=== PATIENT | female | born 1995 | race Hispanic/Latino ===

== ENCOUNTER 2021-11-25 13:45 | Emergency (ER) | payer BC ==
[2021-11-25] MEDS ORDERED: NA CHLORIDE 0.9% 1,000 ML ONE (14:05)
[2021-11-25] MEDS ORDERED: MECLIZINE HCL 12.5 MG TAB ONE (14:05)
[2021-11-25] MEDS ORDERED: ONDANSETRON 4 MG/2 ML VIAL ONE (14:06)
[2021-11-25 14:15] LABS: Urine Blood Trace-lysed (Negative); Urine Glucose Negative (Negative); Urine Protein Negative (Negative); Urine pH 6.5 (5.0-7.0)
--- NOTE | 2021-11-25 14:25 | RAD REPORT ---
EXAM DESCRIPTION: CT - Head Brain Wo Cont - 11/25/2021 2:14 pm CLINICAL HISTORY: Dizziness, non-specific COMPARISON: No comparisons TECHNIQUE: Axial 5 mm thick images of the head were obtained without IV contrast. All CT scans are performed using dose optimization technique as appropriate and may include automated exposure control or mA/KV adjustment according to patient size. FINDINGS: No intracranial hemorrhage, mass, edema or shift of mid-line structures. No acute infarcti on changes seen. No abnormal extra-axial fluid collections. Ventricles are normal. Physiologic calcif ications are present. Mastoid air cells and visualized portions of the paranasal sinuses are clear. No acute bony findings. IMPRESSION: Negative non-contrast CT head examination.
[2021-11-25 14:39] LABS: Absolute Lymphocytes (CBC) 1.7 K/uL (0.7-4.9); Hematocrit 37.4 % (36.0-45.0); Lymphocytes % 25.8 % (15.3-44.8); MCV 85.6 fL (80-100); MPV 7.4 fL (7.6-11.3); RBC Red Blood Cell Count 4.36 M/uL (3.86-4.86)
[2021-11-25 15:00] LABS: ALT/SGPT 19 U/L (12-78); AST/SGOT 13 U/L (15-37); Albumin 4.1 g/dL (3.4-5.0); Alkaline Phosphatase 91 U/L (45-117); BUN Blood Urea Nitrogen 8 mg/dL (7-18); Bicarbonate 27 mmol/L (21-32); Bilirubin Direct 0.1 mg/dL (0-0.2); Bilirubin Total 0.6 mg/dL (0.2-1.0); Glomerular Filtration Rate 125 ml/min (=/>90); Glucose Level 110 mg/dL (74-106); Potassium 3.2 mmol/L (3.5-5.1); Protein, Total 7.8 g/dL (6.4-8.2); Sodium Level 141 mmol/L (136-145)
[2021-11-25 15:01] LABS: Troponin High Sensitivity < 3.0 pg/mL (<58.9)
[2021-11-25] MEDS ORDERED: POTASSIUM CL SA 10 MEQ TAB PO ONE (15:13)
--- NOTE | 2021-11-25 15:16 | RAD REPORT ---
EXAM DESCRIPTION: RAD - Chest Single View - 11/25/2021 2:35 pm CLINICAL HISTORY: near syncope, dizziness COMPARISON: None TECHNIQUE: AP portable chest image was obtained 11/25/2021 2:35 pm . FINDINGS: Lungs are clear of mass or consolidation. Lung markings are not outside of normal range. . Heart and vasculature are normal. No measurable pleural effusion and no pneumothorax. No acute bony abnormality seen. No acute aortic findings suspected. IMPRESSION: No acute cardiopulmonary process.
[2021-11-25] MEDS ORDERED: DIAZEPAM 5 MG TABLET ONE (15:40)
--- NOTE | 2021-11-25 15:58 | ER ---
Nurse's Notes [facility] Name: Jossie Sparks Age: 26 yrs Sex: Female : 1995 Arrival Date: 11/25/2021 Time: 13:49 Bed 17 Private MD: Diagnosis: Benign paroxysmal vertigo Presentation: 11/25 13:59 Chief complaint: Patient states: blurred vision, dizziness, jaw pain, hot flash, chills mb8 since this morning. Coronavirus screen: Vaccine status: Patient reports being unvaccinated. Ebola Screen: Patient negative for fever greater than or equal to 101.5 degrees Fahrenheit, and additional compatible Ebola Virus Disease symptoms Patient denies exposure to infectious person. Patient denies travel to an Ebola-affected area in the 21 days before illness onset. 13:59 Method Of Arrival: EMS mb8 14:00 Initial Sepsis Screen: Does the patient meet any 2 criteria? No. Patient's initial mb8 sepsis screen is negative. Does the patient have a suspected source of infection? No. Patient's initial sepsis screen is negative. Risk Assessment: Do you want to hurt yourself or someone else? Patient reports no desire to harm self or others. Onset of symptoms was November 25, 2021. 14:00 Acuity: [place] 3 mb8 Triage Assessment: 14:00 General: Appears uncomfortable, Behavior is calm, cooperative, appropriate for age. mb8 Historical: - Allergies: 14:01 No Known Allergies; mb8 - PMHx: 14:01 Seizure; mb8 - Social history:: Smoking status: Patient denies any tobacco usage or history of. Screenin:02 Abuse screen: Denies threats or abuse. Denies injuries from another. Nutritional mb8 screening: No deficits noted. Tuberculosis screening: No symptoms or risk factors identified. Fall Risk None identified. Assessment: 14:00 Pain: Complains of pain in chin, right jaw and left jaw Pain does not radiate. Pain mb8 currently is 2 out of 10 on a pain scale. Quality of pain is described as aching. Neuro: Reports dizziness. Cardiovascular: Reports lightheadedness, Denies chest pain, palpitations, shortness of breath, Rhythm is sinus tachycardia. Respiratory: No deficits noted. 14:48 Reassessment: Patient and/or family updated on plan of care and expected duration. Pain mb8 level reassessed. Patient is alert, oriented x 3, equal unlabored respirations, skin warm/dry/pink. Patient states feeling better. 15:44 Reassessment: Patient still feeling dizzy, Valuim given. mb8 Vital Signs: 14:00 BP 115 / 65; Pulse 97; Resp 16; Temp 98.3; Pulse Ox 99% ; Weight 57.61 kg; Height 5 ft. mb8 0 in. (152.40 cm); Pain 2/10; 14:48 BP 120 / 75; Pulse 87; Resp 14; Pulse Ox 100% ; Pain 0/10; mb8 16:25 BP 116 / 84; Pulse 80; Resp 14 S; Temp 98.1; Pulse Ox 99% on R/A; Pain 0/10; mb8 14:00 Body Mass Index 24.80 (57.61 kg, 152.40 cm) mb8 Vitals: 14:48 Cardiac Rhythm Assessment Sinus rhythm. mb8 ED Course: 13:49 Patient arrived in ED. mb8 13:52 Dileep Rose NP is PHCP. pm1 13:52 Oneil Colbert MD is Attending Physician. pm1 13:59 Adam Soriano, MARCIO is Primary Nurse. mb8 14:00 Triage completed. mb8 14:00 Arm band placed on. mb8 14:02 Patient has correct armband on for positive identification. Placed in gown. Bed in low mb8 position. Call light in reach. Side rails up X2. Client placed on continuous cardiac and pulse oximetry monitoring. NIBP monitoring applied. manager monitoring on. 14:02 No provider procedures requiring assistance completed. Inserted saline lock: 18 gauge mb8 in left antecubital area, using aseptic technique. 14:16 CT Head Brain wo Cont In Process Unspecified. EDMS 14:37 XRAY Chest (1 view) In Process Unspecified. EDMS 16:25 IV discontinued, intact, bleeding controlled, No redness/swelling at site. Pressure mb8 dressing applied. Administered Medications: 14:31 Drug: Meclizine 50 mg Route: PO; mb8 15:18 Follow up: Response: No adverse reaction mb8 14:31 Drug: Zofran (Ondansetron) 4 mg Route: IVP; Site: left antecubital; mb8 15:18 Follow up: Response: No adverse reaction mb8 15:18 Drug: Potassium Chloride 40 mEq Route: PO; mb8 16:26 Follow up: Response: No adverse reaction mb8 15:44 Drug: Valium (diazepam) 5 mg Route: PO; mb8 16:26 Follow up: Response: No adverse reaction; RASS: Alert and Calm (0) mb8 Medication: 14:02 VIS not applicable for this client. mb8 Outcome: 15:57 Discharge ordered by . pm1 16:25 Discharged to home ambulatory, with family. mb8 16:25 Condition: stable 16:25 Discharge instructions given to patient, Instructed on discharge instructions, follow up and referral plans. no drinking with medication, no driving heavy equipment, medication usage, Demonstrated understanding of instructions, follow-up care, medications, Prescriptions given X 2. 16:28 Patient left the ED. mb8 Signatures: Dispatcher [employer] EDDileep Diaz NP SPECIAL EDUCATION PARA PROFESSIONAL pm1 Adam Soriano RN RN mb8
--- NOTE | 2021-11-25 15:58 | EDPHYS ---
Physician Documentation [facility] Name: Jossie Sparks Age: 26 yrs Sex: Female : 1995 Arrival Date: 11/25/2021 Time: 13:49 Bed 17 Private MD: ED Physician Oneil Colbert HPI: 11/25 13:58 This 26 yrs old Female presents to ER via EMS with complaints of Dizziness. pm1 13:58 The patient presents with sense of spinning. Onset: The symptoms/episode began/occurred pm1 this morning. Context: occurred at home, occurred while the patient was sitting, right ear pain last week. Modifying factors: The symptoms are alleviated by closing eyes, holding head still, the symptoms are aggravated by movement of head, changing position. Associated signs and symptoms: Pertinent positives: bilateral jaw pain, Pertinent negatives: chest pain, shortness of breath. Severity of symptoms: in the emergency department the symptoms are unchanged. Patient's baseline: Neuro: alert and fully oriented, Motor: no deficits, Ambulation: walks without assistance, Speech: normal. The patient has not experienced similar symptoms in the past. The patient has not recently seen a physician. Historical: - Allergies: 14:01 No Known Allergies; mb8 - PMHx: 14:01 Seizure; mb8 - Social history:: Smoking status: Patient denies any tobacco usage or history of. ROS: 13:58 Constitutional: Negative for fever, chills, and weight loss. pm1 13:58 Eyes: Negative for injury, pain, redness, and discharge, ENT: Negative for injury, pain, and discharge, Neck: Negative for injury, pain, and swelling, Cardiovascular: Negative for chest pain, palpitations, and edema, Respiratory: Negative for shortness of breath, cough, wheezing, and pleuritic chest pain, Abdomen/GI: Negative for abdominal pain, nausea, vomiting, diarrhea, and constipation, Back: Negative for injury and pain, MS/Extremity: Negative for injury and deformity, Skin: Negative for injury, rash, and discoloration. 13:58 Neuro: Positive for dizziness, Negative for headache, numbness, tingling, weakness. 13:58 All other systems are negative. Exam: 13:58 Constitutional: This is a well developed, well nourished patient who is awake, alert, pm1 and in no acute distress. Head/Face: Normocephalic, atraumatic. 13:58 MS/ Extremity: Pulses equal, no cyanosis. Neurovascular intact. Full, normal range of motion. 13:58 Eyes: Periorbital structures: no acute changes, Pupils: no acute changes, normal size, normal reaction to light, Extraocular movements: no acute changes, Conjunctiva: no acute changes, no injection, arun-hallpike test positive, horizontal nystagmus that is fatiguable lasting less than 30 seconds. Nystagmus: bilateral with right wards gaze. 13:58 ENT: Exam is negative for acute changes, External ear(s): no acute changes, Ear canal(s): no acute changes, TM's: no acute changes. 13:58 Neck: Exam negative for acute changes, External neck: no acute changes, ROM/movement: no acute changes. 13:58 Cardiovascular: Exam negative for acute changes, Rate: normal, Rhythm: regular, Pulses: no pulse deficits are appreciated, Heart sounds: normal, normal S1and S2, Edema: is not appreciated. 13:58 Respiratory: Exam negative for acute changes, respiratory distress, shortness of breath, Breath sounds: are clear throughout. 13:58 Abdomen/GI: Inspection: abdomen appears normal, Palpation: abdomen is soft and non-tender, in all quadrants. 13:58 Back: Exam negative for acute changes, pain, is absent, ROM is normal. 13:58 Neuro: Exam negative for acute changes, Orientation: is normal, Mentation: is normal, Motor: is normal, moves all fours, Sensation: no obvious gross deficits. Vital Signs: 14:00 BP 115 / 65; Pulse 97; Resp 16; Temp 98.3; Pulse Ox 99% ; Weight 57.61 kg; Height 5 ft. mb8 0 in. (152.40 cm); Pain 2/10; 14:48 BP 120 / 75; Pulse 87; Resp 14; Pulse Ox 100% ; Pain 0/10; mb8 16:25 BP 116 / 84; Pulse 80; Resp 14 S; Temp 98.1; Pulse Ox 99% on R/A; Pain 0/10; mb8 14:00 Body Mass Index 24.80 (57.61 kg, 152.40 cm) mb8 MDM: 13:53 Patient medically screened. pm1 15:22 Data reviewed: vital signs. Data interpreted: Pulse oximetry: on room air is 100 %. pm1 Interpretation: normal. 15:30 Counseling: I had a detailed discussion with the patient and/or guardian regarding: the pm1 historical points, exam findings, and any diagnostic results supporting the discharge/admit diagnosis, lab results, radiology results, the need for outpatient follow up, a neurologist, to return to the emergency department if symptoms worsen or persist or if there are any questions or concerns that arise at home. 15:59 ED course: [place] reviewed. pm11/25 13:58 Order name: Basic Metabolic Panel; Complete Time: 15:03 pm1 11/25 13:58 Order name: CBC with Diff; Complete Time: 14:57 pm1 11/25 13:58 Order name: LFT's; Complete Time: 15:03 pm11/25 13:58 Order name: Magnesium; Complete Time: 15:03 pm1 11/25 13:58 Order name: Troponin HS; Complete Time: 15:03 pm1 11/25 14:15 Order name: Urine Dipstick-Ancillary; Complete Time: 14:20 EDMS 11/25 13:58 Order name: XRAY Chest (1 view); Complete Time: 15:22 pm1 11/25 13:58 Order name: EKG; Complete Time: 13:59 pm1 11/25 13:58 Order name: Cardiac monitoring; Complete Time: 14:03 pm11/25 13:58 Order name: CT Head Brain wo Cont; Complete Time: 14:29 pm11/25 13:58 Order name: EKG - Nurse/Tech; Complete Time: 14:31 pm11/25 13:58 Order name: IV Saline Lock; Complete Time: 14:04 pm11/25 13:58 Order name: Labs collected and sent; Complete Time: 14:31 pm11/25 13:58 Order name: O2 Per Protocol; Complete Time: 14:04 pm11/25 13:58 Order name: O2 Sat Monitoring; Complete Time: 14:04 pm EC: Rate is 84 beats/min. Rhythm is regular. QRS [place] is Normal. CT interval is normal. QRS pm1 interval is normal. QT interval is normal. No Q waves. T waves are Normal. No ST changes noted. Clinical impression: Normal ECG. 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 I agree with assessment [id number] and care plan and confirm the diagnosis (es) above. Attestation: The patient's history, exam findings, diagnostics, and a summary of any interventions or procedures was reviewed in detail with Dileep Rose NP. Disposition Summary: 11/25/21 15:57 Discharge Ordered Location: Home pm1 Problem: new pm1 Symptoms: have improved pm1 Condition: Stable pm1 Diagnosis - Benign paroxysmal vertigo pm1 Followup: pm1 - With: Emergency Department - When: As needed - Reason: Worsening of condition Followup: pm1 - With: Private Physician - When: 2 - 3 days - Reason: Recheck today's complaints, Continuance of care, Re-evaluation by your physician Discharge Instructions: - Discharge Summary Sheet pm1 - Benign Positional Vertigo pm1 Forms: - Medication Reconciliation Form pm1 - Thank You Letter pm1 - Antibiotic Education pm1 - Prescription Opioid Use pm1 Prescriptions: - Meclizine 25 mg Oral Tablet - take 1 tablet by ORAL route every 8 hours As needed; 30 tablet; Refills: 0, pm1 Product Selection Permitted - Valium 2 mg Oral Tablet - take 1 tablet by ORAL route every 8 hours As needed; 20 tablet; Refills: 0, pm1 Product Selection Permitted Signatures: Dispatcher [employer] EDDileep Diaz, ENVELOPE MACHINE OPERATOR ENVELOPE MACHINE OPERATOR pm1 Oneil Colbert MD MD [id number] Adam Soriano RN RN mb8
[2021-11-26 19:44] VITALS: BP 116/84; TEMP 98.1; O2SAT 99
--- NOTE | 2021-11-28 07:49 | EKG ---
Test Date: 2021-11-25 Test Time: 14:22:00 Gunite Nozzle Operator: BRET MEASUREMENT RESULTS: Intervals: Rate: 84 MO: 158 QRSD: 78 QT: 358 QTc: 423 [place]: P: 62 MO: 158 QRS: 69 T: 63 INTERPRETIVE STATEMENTS: Normal sinus rhythm Normal ECG No previous ECG available for comparison Electronically Signed On 11-28-21 07:44:49 CDT by Geovanni De La Cruz
== END 2021-11-25 16:28 | disposition home or self-care (01) ==
LOC: ER 13:45
DX: H81.10 Benign paroxysmal vertigo, unspecified ear (principal)
CPT/HCPCS: 93005; 85025; 80048; 36415; 83735; 80076; 81003; 84484; 70450; 71045; 96374; 99284; J8597; J7030; J2405

== ENCOUNTER 2022-06-27 22:33 | Emergency (ER) | payer BC ==
--- OUTSIDE RECORDS SUMMARY | 2022-06-27 22:37 | XMS REPORT | Continuity of Care Document ---
:1995 Author Organization [facility] t Address [address] [place] [address] [place] [id number] Care Team Providers Name Role Phone GC_CPC_WalkInSchedul Attending Clinician Unavailable Buster Ramirez Attending Clinician VISIT, NURSE TMO Attending Clinician Unavailable Leidy Gutierrez Attending Clinician DAGO_WalkInSruben Admitting Clinician Unavailable Buster Ramirez Admitting Clinician Leidy Gutierrez Admitting Clinician Payers Payer Name Policy Type Policy Number Effective Date Expiration Date S car[place] [id number] 2021 00:00:00 [place] Problems Condition Condition Condition Status Onset Resolution Last Treating Co mments Source Name Details Category Date Date Treatment Clinician Date ABD PAIN, ABD Diagnosis Active 2018-08-20 Memoria PAIN, 6-21 13:42:00 l 00:00: Michael Active 00 08/17/2018 [facility] LABOR LABOR Diagnosis Active 2018-12-24 Mem oria Active 10-28 10:37:00 l 10/28/2017 00:00: Isidro enrique [address] Patient Patient Problem Resolve 2020-03-06 2020-03-06 Memoria currently currently d 1-12 01:15:18 01:15:18 l 00:00: Isidro enrique (finding) (finding) 00 Resolved 03/10/2016 Problem 03/06/2020 Medical Group,[facility], [place] History of Past Illness Condition Condition Condition Status Onset Resolution Last Treating Co mments Source Name Details Category Date Date Treatment Clinician Date Encounter Encounter Problem 2020-03-06 2020-03-06 Memoria for other for other 1- 01:15:18 01:15:18 l general general 19:56: Michael counseling counseling 00 and advice and advice on on contracept contracept ion ion 03/03/2020 03/06/2020 [facility] Group Encounter Problem 2018-022019-02-08 2019-02-08 Memoria for Encounter 2- 01:17:11 01:17:11 l routine for 20:43: Michael routine 00 follow-up follow-up 02/05/2019 02/08/2019 [facility] Group Encounter Encounter Problem 2018-022018-12-21 2018-12-21 Memoria for for 0-23 23:45:57 23:45:57 l supervisio supervisio 20:05: He rmann n of other n of other 00 normal normal , , third third trimester trimester 12/19/2018 9 [facility] Group Encounter Encounter Problem 2018-08-24 2018-08-24 Memoria for for 6-26 23:50:12 23:50:12 l supervisio supervisio 15:26: He rmann n of other n of other 00 normal normal , , second second trimester trimester 08/22/2018 08/24/2018 Medical Group Lower Lower Problem 2018-08-19 2018-08-19 M emoria abdominal abdominal 6- 21:08:07 21:08:07 l pain, pain, 17:00: Michael unspecifie unspecifie 00 d d 08/17/2018 08/19/2018 [facility] Encounter Encounter Problem 2018-08-19 2018-08-19 Memoria for for 6-21 21:08:07 21:08:07 l supervisio supervisio 17:00: He rmann n of n of 00 normal normal , , unspecifie unspecifie d, d, unspecifie unspecifie d d trimester trimester 08/17/2018 9 [facility] Encounter Encounter Problem 2018-06-28 2018-06-28 Memoria for for 4-30 21:47:38 21:47:38 l supervisio supervisio 15:36: He rmann n of other n of other 00 normal normal , , first first trimester trimester 06/26/2018 06/28/2018 Medical Group Personal Personal Problem 2018-06-03 2018-06-03 Memoria history of history of - 21:44:05 21:44:05 l other other 18:04: Michael complicati complicati 00 ons of ons of , , childbirth childbirth and the and the pu[place] puerperium 06/01/2018 9 [facility] Group Encounter Encounter Problem 2018-06-03 2018-06-03 Memoria for for 06-01 21:44:05 21:44:05 l 17:46: Herm jennifer test, test, 00 result result positive positive 06/01/2018 9 [facility] Group Allergies, Adverse Reactions, Alerts Allergy Allergy Status Severity Reaction(s) Onset Inactive Treating Comm ents Source Name Type Date Date Clinician No Known No Known Active Memori a Medicati Medicati l on on Michael Allergti Allergti s s Social History Social Habit Start Date Stop Date Quantity Comments Source Social History 2018-06-01 2018-06-01 [facility] 18:16:00 18:16:00 Smoking Status Start Date Stop Date Source Never Smoker [facility] Medications Ordered Filled Start Stop Current Ordering Indication Dosage Frequency Signature Comments Components Source Medication Medication Date Date Medication? Clinician (SIG) Name Name { Yes 4 mg = 1 Memoria (drospireno 1-05 tab, PO, l ne 4 MG 19:57: Daily, # Isidro n Oral 00 84 tab, 3 Tablet) / 4 Refill(s), (Inert Pharmacy: Ingredients [facility] 1 MG Oral Pharmacy Tablet) } 808, Pack 152.4, cm, [Slynd] 02/05/19 15:13:00 [employer], Height, 52.33, kg, 02/05/19 15:13:00 [employer], Weight Slynd 4 mg 2018-02 Yes 4 mg = 1 Mem oria oral tablet 2-10 tab, PO, l 21:24: Daily, # [place] 00 90 tab, 3 Refill(s), [facility] influenza 2018-02 No Notes: Memori a virus 0-30 (Same as: l vaccine, 18:10: Fluzone Isidro n inactivated 22 Quadrivale nt, Fluarix Quadrivale nt) For patients 6 - 35 months of age (0.5 mL IM) For 3 years of age and older (0.5 mL IM) Shake well before use Dermoplast 2018-02 Yes 1 spray, Mem oria 20% topical 0-30 TOP, PRN, l spray 13:15: PRN [place] 00 Irritation , # 1 ea, 2 Refill(s), Pharmacy: [facility] [address] [place] [address] 2018-02 Yes 100 mg = 1 Mem oria Sodium 100 0-30 cap, PO, l MG Oral 13:15: BID, # 60 Dian nn Capsule 00 cap, 2 [Colace] Refill(s), Pharmacy: [facility] ibuprofen 2018-02 Yes 600 mg = 1 Me moria 600 mg oral 0-30 tab, PO, l tablet 13:15: Q6Hnow, # Isidro n 00 30 tab, 0 Refill(s), Pharmacy: [facility] [address] [place] [address] 2018-02 No Notes: Memoria Sodium 100 0-29 (Same as: l MG Oral 22:00: Colace) [place] Capsule 00 (Do Not [Colace] Crush) 2018-02 No 1 tab, Memoria Multivitami 0-29 Route: PO, l ns oral 14:00: Drug Form: Herm jennifer tablet 00 TAB, Dosing Weight 59.091, kg, Daily, Start date: 12/25/18 9:00:00 CDT, Duration: 30 day, Stop date: 01/23/19 9:00:00 [employer], 0 Remove - 2018-02 No Notes: Memoria dinoproston 0-29 Vaginal l e 06:00: insert: to Michael (Cervidil) 00 be removed insert 1 hour prior to oxytocin administra tion or 12 hours after insertion. Oxytocin 2018-02 No 30 unit, Memor ia 0-29 500 mL, l 06:00: Rate: 42 Michael 00 ml/hr, Infuse over: 11.9 hr, Dosing Weight 59.091, kg, Route: IV, Total Volume: 500 mL, Start date: 12/25/18 1:00:00 CDT, Duration: 2 day, Stop date: 12/27/18 0:59:00 CDT, Replace Every: 11.9 hr, 0 Lactated 2018-02 No 1,000 mL, Jarrell gutierrez Ringers IV 0-29 Rate: 100 l 1,000 mL 06:00: ml/hr, Infuse over: 10 hr, Route: IV, Dosing Weight 59.091 kg, Total Volume: 1,000, Start date: 12/25/18 1:00:00 CDT, Duration: 30 day, Stop date: 01/24/19 0:59:00 [employer], 1.6, m2, 0 Ondansetron 2018-02 No Notes: Jarrell gutierrez 0-29 (Same as: l 06:00: Zofran) MEDICATION WASTE Product Size: 4 mg Product Wasted: ___ mg Docusate 2018-02 No Notes: Memoria 0-29 (Same as: l 06:00: Colace) (Do Not Crush) Bisacodyl 2018-02 No Notes: Memori a 0-29 (Same As: l 06:00: Dulcolax, Michael Correctol) (Do Not Crush) "Do Not Crush" lanolin 2018-02 No Notes: Memoria topical 0-29 (Same l 06:00: as:Lanolin ) zolpidem 2018-02 No Notes: Memoria 0-29 (Same As: l 06:00: Ambien) Dermoplast 2018-02 No Notes: Memor ia 20% topical 0-29 (Same As: l spray 06:00: Dermoplast Isidro 00 ) WASTE: Aerosol - Return to Pharmacy FOR EXTERNAL USE ONLY Methylergon 2018-02 No Notes: Jarrell gutierrez ovine 0-29 (Same l 06:00: as:Metherg Michael 00 ine) M-M-R II 2018-02 No Notes: Memoria 0-29 (Same as: l 06:00: M-M-R II) (measles-m umps-rubel la virus vaccine 0.5 ml INJ VL) WASTE: F/P - Red; E -Red GIVE PRIOR TO DISCHARGE Ibuprofen 2018-02 No Notes: Memori a 0-29 (Same as: l 06:00: Motrin) "Do Not Crush" Take with food. Acetaminoph 2018-02 No Notes: Jarrell gutierrez en 325 MG / 0-29 (Same as: l Hydrocodone 06:00: Foster Dian nn Bitartrate 00 325/5) Do 5 MG Oral not exceed Tablet 4gm/day of acetaminop hen. Acetaminoph 2018-02 No Notes: Do M emoria en 325 MG / 0-29 not exceed l Hydrocodone 06:00: 4gm/day of Michael Bitartrate 00 acetaminop 10 MG Oral hen. (Same Tablet as: Foster 325/10) Tylenol 2018-02 No Notes: Max Jarrell gutierrez 0-29 acetaminop l 01:35: hen 4000 Madison 00 mg/day (4 gm/day). (Same as: Tylenol Extra Strength) Oxytocin 2018-02 No 30 unit, Memor ia 0-28 500 mL, l 22:53: Rate: Madison 00 Titrate, Dosing Weight 59.091, kg, Route: IV, Total Volume: 500 mL, Start date: 12/24/18 17:53:00 CDT, Duration: 2 day, Stop date: 12/26/18 17:52:00 CDT, Replace Every: 24 hr, 0 Famotidine 2018-02 No Notes: Memor ia 0-28 (Same as: l 18:00: Pepcid) Can be dilute in 5-10cc NS IVP: Slow IV push over at least 2 minutes. Misoprostol 2018-02 No Notes: Jarrell gutierrez 0-28 (Same l 18:00: as:Cytotec Michael 00 ) Take with food Methylergon 2018-02 No Notes: Jarrell gutierrez ovine 0-28 (Same l 18:00: as:Metherg [place] 00 ine) Citric Acid 2018-02 No Notes: Jarrell gutierrez / sodium 0-28 (Same As: l citrate 18:00: Bicitra, Isidro n 00 Cytra-2) Sodium citrate-ci tric acid (500-334 mg/5 mL): 1 mL contains sodium 1 mEq/mL and bicarbonat e 1 mEq/mL Carboprost 2018-02 No Notes: Memor ia 0-28 (Same As: l 18:00: Hemabate) Michael 00 Tranexamic 2018-02 No Notes: Memor ia Acid 0-28 (Same As: l 18:00: Cyklokapro Michael 00 n) Cervidil 2018-02 No Notes: Memoria 0-28 (Same as: l 17:15: Cervidil) Michael 00 Lidocaine 2018-02 No Notes: Memori a Hydrochlori 0-28 Preservati l de 10 MG/ML 17:15: ve free. He rmann Injectable 00 (Same as: Solution Xylocaine MPF) Calcium 2018-02 No 1,000 mL, Memor ia Chloride 0-28 1,000 l 0.0014 17:15: ml/hr, Micheal MEQ/ML / 00 Infuse Potassium Over: 1 Chloride hr, Route: 0.004 IV, 1,000, MEQ/ML / Drug form: Sodium INJ, ONCE, Chloride Dosing 0.103 Weight MEQ/ML / 59.091 kg, Sodium Start Lactate date: 0.028 12/24/18 MEQ/ML 12:15:00 Injectable CDT, Stop Solution date: 12/24/18 12:15:00 CDT, Bolus for regional anesthesia per unit routine, 0 Lactated 2018-02 No 1,000 mL, Jarrell gutierrez Ringers IV 0-28 Rate: 125 l 1,000 mL 17:15: ml/hr, Infuse over: 8 hr, Route: IV, Dosing Weight 59.091 kg, Total Volume: 1,000, Start date: 12/24/18 12:15:00 CDT, Duration: 30 day, Stop date: 01/23/19 12:14:00 [employer]NA[employer], 1.6, m2, 0 Oxytocin 2018-02 No 30 unit, Memor ia 0-28 500 mL, l 17:15: Rate: 42 Michael 00 ml/hr, Infuse over: 11.9 hr, Dosing Weight 59.091, kg, Route: IV, Total Volume: 500 mL, Start date: 12/24/18 12:15:00 CDT, Duration: 2 day, Stop date: 12/26/18 12:14:00 CDT, Replace Every: 11.9 hr, 0 Butorphanol 2018-02 No Notes: Jarrell gutierrez 0-28 (Same As: l 17:15: Stadol) Michael 00 Ibuprofen 2018-02 No Notes: Memori a 0-28 (Same as: l 17:15: Motrin) Michael "Do Not Crush" Take with food. Acetaminoph 2018-02 No Notes: Jarrell gutierrez en 325 MG / 0-28 (Same as: l Hydrocodone 17:15: Foster Dian nn Bitartrate 00 325/5) Do 5 MG Oral not exceed Tablet 4gm/day of acetaminop hen. Ondansetron 2018-02 No Notes: Jarrell gutierrez 0-28 (Same as: l 17:15: Zofran) Michael 00 MEDICATION WASTE Product Size: 4 mg Product Wasted: ___ mg Terbutaline 2018-02 No Notes: Jarrell gutierrez 0-28 DO NOT l 17:15: USE IN Micahel 00 MANAGER CLIENT SUPPORT AREA (Same As: Brethine) Saline No Notes: Memoria Flush 0.9% 6-21 (Same as: l 08:50: BD Michael 00 Posiflush) Sodium No 1,000 mL, Memori a Chloride 6-21 1000 l 0.9% 06:49: ml/hr, Michael (Bolus) IV 00 Infuse Over: 1 hr, Route: IV, 1,000, Drug form: INJ, ONCE, Priority: STAT, Dosing Weight 50 kg, Start date: 08/17/18 1:49:00 CDT, Stop date: 08/17/18 1:49:00 CDT Aspirin 81 Yes 81 mg = 1 Me moria MG Chewable 5-28 tab, CHEW, l Tablet 16:24: Daily, 0 Michael 00 Refill(s) Prenate Yes 1 cap, PO, Jarrell gutierrez mini with 4-05 Daily, # l DHA oral 18:28: 90 cap, 3 Herm jennifer capsule 00 Refill(s), Pharmacy: [facility] 808 doxylamine Yes 2 tab, PO, M emoria succinate 4-05 Bedtime, l 10 MG / 18:28: take 2 Madison Pyridoxine 00 tabs at Hydrochlori night; 1 de 10 MG in the Enteric morning Coated and 1 in Tablet the [Diclegis] afternoon if needed, # 180 tab, 2 Refill(s), Pharmacy: [facility] 808 meclizine meclizine No 1 TID meclizine [facility] 25 mg 25 mg 25 mg Medical tablet Take tablet Take tablet 1 tablet 3 1 tablet 3 Take 1 times a day times a day tablet 3 by oral by oral times a route. route. day by oral route. buspirone buspirone No 1 BID buspirone [facility] 7.5 mg 7.5 mg 7.5 mg Medical tablet Take tablet Take tablet 1 tablet 1 tablet Take 1 twice a day twice a day tablet by oral by oral twice a route as route as day by needed. needed. oral route as needed. escitalopra escitalopra No 1 Q1D escitalopr Joelia m 10 mg m 10 mg am 10 mg Medic al tablet Take tablet Take tablet 1 tablet 1 tablet Take 1 every day every day tablet by oral by oral every day route at route at by oral bedtime. bedtime. route at bedtime. Immunizations Ordered Immunization Filled Immunization Date Status Commen ts Source Name Name diphtheria/pertussis 2018-11-20 Completed Jarrell johnson , acel/tetanus adult 15:38:00 [facility] jennifer Vital Signs Vital Name Observation Time Observation Value Comments Source BP Diastolic 2022-05-13 00:00:00 82 mm[Hg] [facility] Height 2022-05-13 00:00:00 59 [in_i] [facility] BMI (Body Mass Index) 2022-05-13 00:00:00 25 kg/m2 [facility] BP Systolic 2022-05-13 00:00:00 118 mm[Hg] [facility] Weight 2022-05-13 00:00:00 1984 [oz_av] [facility] Systolic (mm Hg) 2019-02-05 21:06:00 Jarrell johnson [place] Diastolic (mm Hg) 2019-02-05 21:06:00 [facility] wandy Michael Heart Rate 2019-02-05 [facility] 2019-02-05 21:06:00 152.4 cm [facility] Weight 2019-02-05 21:06:00 [facility] BMI Calculated 2019-02-05 21:06:00 Romel [place] Temperature Oral (F) 2018-12-26 22:16:00 98.1 F [facility] Heart Rate 2018-12-26 22:16:00 [facility] Respitory Rate 2018-12-26 22:16:00 Memori al Michael Systolic (mm Hg) 2018-12-26 22:16:00 Jarrell rial Michael Diastolic (mm Hg) 2018-12-26 22:16:00 Mem orial [place] Temperature Oral (F) 2018-12-26 13:34:00 97.5 F [facility] [place] Heart Rate 2018-12-26 13:34:00 [facility] Michael Respitory Rate 2018-12-26 13:34:00 Memori al Michael Systolic (mm Hg) 2018-12-26 13:34:00 Jarrell rial Michael Diastolic (mm Hg) 2018-12-26 13:34:00 Mem orial Michael Temperature Oral (F) 2018-12-26 05:03:00 97.6 F [facility] [place] Heart Rate 2018-12-26 05:03:00 [facility] Michael Respitory Rate 2018-12-26 05:03:00 Memori al Michael Systolic (mm Hg) 2018-12-26 05:03:00 Jarrell rial [place] Diastolic (mm Hg) 2018-12-26 05:03:00 Mem orial Michael Height 2018-12-24 16:10:00 152.4 cm [facility] Michael Weight 2018-12-24 16:10:00 [facility] [place] BMI Calculated 2018-12-24 16:10:00 Memori al Michael Systolic (mm Hg) 2018-12-19 19:48:00 Jarrell rial [place] Diastolic (mm Hg) 2018-12-19 19:48:00 Mem orial [place] Heart Rate 2018-12-19 19:48:00 [facility] [place] Weight 2018-12-19 19:48:00 [facility] [place] Systolic (mm Hg) 2018-12-12 19:44:00 Jarrell rial [place] Diastolic (mm Hg) 2018-12-12 19:44:00 Mem orial [place] Heart Rate 2018-12-12 19:44:00 [facility] [place] Height 2018-12-12 19:44:00 152.4 cm [facility] Michael Weight 2018-12-12 19:44:00 [facility] [place] BMI Calculated 2018-12-12 19:44:00 Memori al Michael Systolic (mm Hg) 2018-11-20 14:43:00 Jarrell rial [place] Diastolic (mm Hg) 2018-11-20 14:43:00 Mem orial [place] Heart Rate 2018-11-20 14:43:00 [facility] Michael Height 2018-11-20 14:43:00 152.4 cm [facility] Michael Weight 2018-11-20 14:43:00 [facility] Michael BMI Calculated 2018-11-20 14:43:00 Memori al Michael Systolic (mm Hg) 2018-10-31 15:25:00 Jarrell rial [place] Diastolic (mm Hg) 2018-10-31 15:25:00 Mem orial [place] Heart Rate 2018-10-31 15:25:00 [facility] [place] Height 2018-10-31 15:25:00 152.4 cm [facility] Michael Weight 2018-10-31 15:25:00 [facility] [place] BMI Calculated 2018-10-31 15:25:00 Memori al Michael Systolic (mm Hg) 2018-10-17 15:24:00 Jarrell rial [place] Diastolic (mm Hg) 2018-10-17 15:24:00 Mem orial Michael Heart Rate 2018-10-17 15:24:00 [facility] Michael Height 2018-10-17 15:24:00 152.4 cm [facility] [place] Weight 2018-10-17 15:24:00 [facility] Michael BMI Calculated 2018-10-17 15:24:00 Memori al [place] Height 2018-09-19 14:27:00 152.4 cm [facility] Michael Weight 2018-09-19 14:27:00 [facility] Michael BMI Calculated 2018-09-19 14:27:00 Memori al Michael Heart Rate 2018-09-19 14:27:00 [facility] [place] Systolic (mm Hg) 2018-09-19 14:27:00 Jarrell rial [place] Diastolic (mm Hg) 2018-09-19 14:27:00 Mem orial [place] Weight 2018-08-22 15:06:00 [facility] [place] BMI Calculated 2018-08-22 15:06:00 Memori al [place] Systolic (mm Hg) 2018-08-22 15:06:00 Jarrell rial [place] Diastolic (mm Hg) 2018-08-22 15:06:00 Mem orial [place] Heart Rate 2018-08-22 15:06:00 [facility] [place] Height 2018-08-22 15:06:00 152.4 cm [facility] Michael Systolic (mm Hg) 2018-08-17 11:50:00 Jarrell rial Michael Diastolic (mm Hg) 2018-08-17 11:50:00 Mem orial [place] Systolic (mm Hg) 2018-08-17 11:38:00 Jarrell rial Michael Diastolic (mm Hg) 2018-08-17 11:38:00 Mem orial [place] Systolic (mm Hg) 2018-08-17 11:30:00 Jarrell rial Michael Diastolic (mm Hg) 2018-08-17 11:30:00 Mem orial Michael Height 2018-08-17 10:40:00 152.4 cm [facility] [place] Weight 2018-08-17 10:40:00 [facility] [place] BMI Calculated 2018-08-17 10:40:00 Memori al Michael Temperature Oral (F) 2018-08-17 10:36:00 98.1 F [facility] [place] Temperature Oral (F) 2018-08-17 10:24:00 98.1 F [facility] [place] Heart Rate 2018-08-17 10:24:00 [facility] [place] Respitory Rate 2018-08-17 08:50:00 Memori al Michael Heart Rate 2018-08-17 08:50:00 [facility] Michael Temperature Oral (F) 2018-08-17 08:50:00 98.0 F [facility] Michael BMI Calculated 2018-08-17 06:49:00 Memori al Michael Weight 2018-08-17 06:49:00 [facility] [place] Heart Rate 2018-08-17 06:49:00 [facility] Michael Respitory Rate 2018-08-17 06:49:00 Memori al [place] Height 2018-08-17 06:49:00 152.4 cm [facility] Michael Heart Rate 2018-07-24 16:07:00 [facility] Michael BMI Calculated 2018-07-24 16:07:00 Memori al [place] Height 2018-07-24 16:07:00 175.26 cm [facility] [place] Weight 2018-07-24 16:07:00 [facility] [place] Systolic (mm Hg) 2018-07-24 16:07:00 Jarrell rial [place] Diastolic (mm Hg) 2018-07-24 16:07:00 Mem orial Michael Heart Rate 2018-06-26 15:12:00 [facility] [place] Weight 2018-06-26 15:12:00 [facility] [place] Height 2018-06-26 15:12:00 152.4 cm [facility] Michael Systolic (mm Hg) 2018-06-26 15:12:00 Jarrell rial [place] Diastolic (mm Hg) 2018-06-26 15:12:00 Mem orial Michael BMI Calculated 2018-06-26 15:12:00 Memori al [place] Height 2018-06-01 18:05:00 152.4 cm [facility] Michael Systolic (mm Hg) 2018-06-01 18:05:00 Jarrell rial Michael Diastolic (mm Hg) 2018-06-01 18:05:00 Mem orial [place] Heart Rate 2018-06-01 18:05:00 [facility] [place] Weight 2018-06-01 18:05:00 [facility] Michael BMI Calculated 2018-06-01 18:05:00 Memori al Michael Procedures This patient has no known procedures. Plan of Care Planned Activity Planned Date Details Comments Source Diagnostic Test 2022-05-13 00:00:00 CBC w/ auto diff [facility] Pending [code = CBC w/ auto diff] Diagnostic Test 2022-05-13 00:00:00 CMP, serum or plasma [facility] Pending [code = CMP, serum or plasma] Diagnostic Test 2022-05-13 00:00:00 TSH, serum or plasma [facility] Pending [code = TSH, serum or plasma] Diagnostic Test 2022-05-13 00:00:00 urinalysis, complete [facility] Pending [code = urinalysis, complete] Encounters Start End Encounter Admission Attending Care Care Encounter Source Date/Time Date/Time Type Type Clinicians Facility Department ID 2018-12-24 Inpatient [facility] [id number] [facility] 10:34:00 2022-05-13 2022-05-13 Outpatient GC_CPC_Walk PRIV PRIV [id number] [facility] 00:00:00 00:00:00 InSchedul [id number] [facility] yasmine 2022-05-13 2022-05-13 [facility]il [facility] 00:00:00 00:00:00 [facility] QUILL SKINNER: [id number] GC_CPC_Need [address] [address], [place] [address] , Ph. 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 5 [id number] Memoria 16:15:00 16:15:00 Pre-Reg r [facility] 18 clive Michael 2019-12-20 2019-12-20 Outpatient MHIE MHIE [id number] Memoria 11:15:00 11:15:00 18 [facility] 2019-12-20 2019-12-20 Outpatient Vine, [facility] [id number] 11:15:00 11:15:00 Buster 18 [facility] 2019-05-07 2019-05-07 Ambulatory nullFlavo [facility] 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 5 [id number] Memoria 20:15:00 20:15:00 Pre-Reg r [facility] 17 clive Michael 2019-05-07 2019-05-07 Outpatient MHIE MHIE [id number] Memoria 15:15:00 15:15:00 17 clive Michael 2019-05-07 2019-05-07 Outpatient Vine, [facility] [id number] 15:15:00 15:15:00 Buster 17 Resendiz 2019-02-05 2019-02-06 Outpatient nullFlavo [facility] 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 5 [id number] Memoria 21:30:00 05:59:59 r [facility] 16 clive Michael 2019-02-05 2019-02-05 Outpatient Vine, [facility] [id number] 15:30:00 23:59:59 Buster 16 Resendiz 2019-02-05 2019-02-05 Outpatient MHIE MHIE [id number] Memoria 15:30:00 15:30:00 16 clive Rodriguez 2018-12-24 2018-12-26 Inpatient nullFlavo [facility] [id number] Memoria 15:34:00 23:02:00 r Michael 47 [facility] 2018-12-24 2018-12-26 Out[facility] Vine[facility] [id number] 10:34:00 18:02:00 Buster Anna [facility] 2018-12-23 2018-12-23 Outpatient MHIE MHIE [id number] Memoria 07:00:00 07:00:00 15 [facility] 2018-12-19 2018-12-20 OP Preparation Supervisor Freezing nullFlavo [facility] 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 55 [id number] Memoria 20:15:00 04:59:59 Clinic r [facility] 14 [facility] 2018-12-19 2018-12-19 Outpatient Vine, MG MG [id number] 15:15:00 23:59:59 Buster He [facility] 2018-12-19 2018-12-19 Outpatient MHIE MHIE [id number] Memoria 15:15:00 15:15:00 14 [facility] 2018-12-12 2018-12-13 OP Preparation Supervisor Freezing nullFlavo MG 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 55 [id number] Memoria 20:30:00 04:59:59 Clinic r [facility] 13 [facility] 2018-12-12 2018-12-13 Outpatient nullFlavo MG 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 5 [id number] Memoria 20:00:00 04:59:59 r [facility] 12 [facility] 2018-12-12 2018-12-12 Outpatient Vine, MG MG [id number] 15:30:00 23:59:59 Buster Lantigua [facility] 2018-12-12 2018-12-12 Outpatient VISIT, MG MG [id number] 15:00:00 23:59:59 NURSE TMO 2018-12-12 2018-12-12 Outpatient MHIE MHIE [id number] Memoria 15:30:00 15:30:00 13 [facility] 2018-12-12 2018-12-12 Outpatient MHIE MHIE [id number] Memoria 15:00:00 15:00:00 12 [facility] 2018-11-20 2018-11-21 OP Preparation Supervisor Freezing nullFlavo MG 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 55 [id number] Memoria 14:15:00 04:59:59 Clinic r [facility] 11 [facility] 2018-11-20 2018-11-20 Outpatient Vine, [facility] [id number] 09:15:00 23:59:59 Buster Jennifer Resendiz 2018-11-20 2018-11-20 Outpatient MHIE MHIE [id number] Memoria 09:15:00 09:15:00 11 [facility] 2018-10-31 2018-11-01 OP Preparation Supervisor Freezing nullFlavo [facility] 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 55 [id number] Memoria 15:00:00 04:59:59 Clinic r [facility] 10 [facility] 2018-10-31 2018-10-31 Outpatient Vine, [facility] [id number] 10:00:00 23:59:59 Buster Joycelyn Resendiz 2018-10-31 2018-10-31 Outpatient MHIE MHIE [id number] Memoria 10:00:00 10:00:00 10 [facility] 2018-10-17 2018-10-18 OP Preparation Supervisor Freezing nullFlavo [facility] MANAGER CLIENT SUPPORT 55 [id number] Memoria 15:00:00 04:59:59 Clinic r TM 09 [facility] 2018-10-17 2018-10-17 Outpatient Vine, MHMG MHMG [id number] 10:00:00 23:59:59 Buster Abad [facility] 2018-10-17 2018-10-17 Outpatient MHIE MHIE [id number] Memoria 10:00:00 10:00:00 09 [facility] 2018-09-20 2018-09-21 Between nullFlavo [facility] MANAGER CLIENT SUPPORT [id number] Memoria 13:20:17 13:20:17 Visit r TMC 09 [facility] 2018-09-20 2018-09-21 Outpatient MHMG MHMG [id number] 08:20:17 08:20:17 09 2018-09-19 2018-09-20 OP Preparation Supervisor Freezing nullFlavo [facility] MANAGER CLIENT SUPPORT 55 [id number] Memoria 15:00:00 04:59:59 Clinic r TMC 08 [facility] 2018-09-19 2018-09-19 Outpatient Vine, MHMG MHMG [id number] 10:00:00 23:59:59 Buster Fabio Resendiz 2018-09-19 2018-09-19 Outpatient MHIE MHIE [id number] Memoria 10:00:00 10:00:00 08 [facility] 2018-08-22 2018-08-23 Outpatient nullFlavo MG MANAGER CLIENT SUPPORT 5 [id number] Memoria 16:00:00 04:59:59 r [facility] 06 clive [place] 2018-08-22 2018-08-23 OP Preparation Supervisor Freezing nullFlavo MG MANAGER CLIENT SUPPORT 55 [id number] Memoria 15:00:00 04:59:59 Clinic r [facility] 07 clive [place] 2018-08-22 2018-08-22 Outpatient Ashley, MG MG [id number] 11:00:00 23:59:59 Delvintuyet Uriarte [facility] 2018-08-22 2018-08-22 Outpatient Ashley, MG MG [id number] 10:00:00 [facility]59[facility] 2018-08-22 2018-08-22 Outpatient MHIE IE [id number] Memoria 11:00:00 11:00:00 06 [facility] 2018-08-22 2018-08-22 Outpatient IE IE [id number] Memoria 10:00:00 10:00:00 07 [facility] 2018-08-17 2018-08-17 Observatio nullFlavo [facility] [id number] Memoria 06:48:01 11:54:00 klaus Rodriguez [address] [place] [address] 2018-08-17 2018-08-17 Outpatient Brenda, MHPL MHPL [id number] 01:48:01 06:54:00 [facility] 2018-08-17 2018-08-17 Emergency E MHBL MHBL [id number] [id number] 01:48:00 01:48:00 2018-07-27 2018-07-28 Between nullFlavo [facility] MANAGER CLIENT SUPPORT [id number] Memoria 13:59:20 13:59:20 Visit r TM 06 clive [place] 2018-07-27 2018-07-28 Outpatient MG MG [id number] 08:59:20 08:59:20 06 2018-07-24 2018-07-25 OP Preparation Supervisor Freezing nullFlavo MG MANAGER CLIENT SUPPORT 55 [id number] Memoria 15:45:00 04:59:59 Clinic r [facility] 05 clive [place] 2018-07-24 2018-07-24 Outpatient Vine, MHMG MHMG [id number] 10:45:00 23:59:59 Delvintatykatarzyna Mp Resendiz 2018-07-24 2018-07-24 Outpatient MHIE MHIE [id number] Memoria 10:45:00 10:45:00 05 clive Rodriguez 2018-06-26 2018-06-27 OP Preparation Supervisor Freezing nullFlavo [facility] MANAGER CLIENT SUPPORT 55 [id number] Memoria 18:00:00 04:59:59 Clinic r [facility] 04 clive Rodriguez 2018-06-26 2018-06-26 Outpatient Vine, MHMG MHMG [id number] 13:00:00 23:59:59 Buster Walter Martín 2018-06-26 2018-06-26 Ambulatory nullFlavo [facility] MANAGER CLIENT SUPPORT 5 [id number] Memoria 16:30:00 16:30:00 Pre-Reg r TMC 03 clive Rodriguez 2018-06-26 2018-06-26 Outpatient MHIE MHIE [id number] Memoria 13:00:00 13:00:00 04 clive Michael 2018-06-26 2018-06-26 Outpatient MHIE MHIE [id number] Memoria 11:30:00 11:30:00 03 clive [place] 2018-06-26 2018-06-26 Outpatient VISIT, MHMG MHMG [id number] 11:30:00 11:30:00 NURSE JONATHANO 03 2018-06-04 2018-06-05 Between nullFlavo [facility] MANAGER CLIENT SUPPORT [id number] Memoria 13:44:56 13:44:56 Visit r TMC 02 clive Rodriguez 2018-06-04 2018-06-05 Outpatient MHMG MHMG [id number] 08:44:56 08:44:56 02 2018-06-01 2018-06-02 Outpatient nullFlavo [facility] MANAGER CLIENT SUPPORT 5 [id number] Memoria 18:00:00 04:59:59 r TMC 01 clive Rodriguez 2018-06-01 2018-06-02 Outpatient nullFlavo [facility] MANAGER CLIENT SUPPORT 5 [id number] Memoria 17:30:00 04:59:59 r TMC 02 clive Rodriguez 2018-06-01 2018-06-01 Outpatient Vine, MHMG MHMG [id number] 13:00:00 23:59:59 Gerilynn 01 Resendiz 2018-06-01 2018-06-01 Outpatient VISIT, [facility] [id number] 12:30:00 23:59:59 NURSE TMO 02 2018-06-01 2018-06-01 Ambulatory nullFlavo [facility] MANAGER CLIENT SUPPORT 5 [id number] Memoria 17:00:00 17:00:00 Pre-Reg r [facility] 00 clive Rodriguez 2018-06-01 2018-06-01 Outpatient CALVIN SIMPSON [id number] Memoria 13:00:00 13:00:00 01 clive Rodriguez 2018-06-01 2018-06-01 Outpatient CALVIN SIMPSON [id number] Memoria 12:30:00 12:30:00 02 clive [place] 2018-06-01 2018-06-01 Outpatient VISIT, [facility] [id number] 12:00:00 12:00:00 NURSE TMO 00 Results Test Description Test Time Test Comments Results Result Comments Source HEMATOLOGY 2018-12-25 19:29:00 Test Item Value Reference Range Interpretation Comme nts Hgb (test code = Hgb) 10.2 12.0-16.0 [facility]208[facility]59 19:29:00 Test Item Value Reference Range Interpretation Comments Hct (test code = Hct) 30.4 36.0-48.0 [facility] Eferio [id number] 17:18:00 Test Item Value Reference Range Interpretation Comments ABO/Rh (test code = ABO/Rh) O POS [facility] Eferio [id number] 17:18:00 Test Item Value Reference Range Interpretation Comments Antibody Scrn (test Negative (12/24/18 code = Antibody Scrn) 12:18 PM) [facility] too[facility]me [id number] 17:18:00 Test Item Value Reference Range Interpretation Comments Glucose Lvl (test code = Glucose Lvl) 94 70-99 [facility] too[facility] [id number] 17:18:00 Test Item Value Reference Range Interpretation Comments BUN (test code = BUN) 10 7-22 [facility] too[facility] [id number] 17:18:00 Test Item Value Reference Range Interpretation Comments Creatinine Lvl (test code = Creatinine 0.57 0.50-1.40 Lvl) [facility]2019-10-28 17:18:00 Test Item Value Reference Range Interpretation Comments Sodium Lvl (test code = Sodium Lvl) 138 135-145 [facility]2019-10-28 17:18:00 Test Item Value Reference Range Interpretation Comments Potassium Lvl (test code = Potassium 3.8 3.5-5.1 Lvl) [facility]2019-10-28 17:18:00 Test Item Value Reference Range Interpretation Comments Chloride Lvl (test code = Chloride Lvl) 110 95-109 [facility]2019-10-28 17:18:00 Test Item Value Reference Range Interpretation Comments CO2 (test code = CO2) 21 24-32 [facility]2019-10-28 17:18:00 Test Item Value Reference Range Interpretation Comments Calcium Lvl (test code = Calcium Lvl) 8.8 8.5-10.5 [facility]2019-10-28 17:18:00 Test Item Value Reference Range Interpretation Comments Total Protein (test code = Total 6.7 6.4-8.4 Protein) [facility]2019-10-28 17:18:00 Test Item Value Reference Range Interpretation Comments Albumin Lvl (test code = Albumin Lvl) 2.5 3.5-5.0 [facility]2019-10-28 17:18:00 Test Item Value Reference Range Interpretation Comments ALT (test code = ALT) 15 See_Comment [Auto mated message] The system which ge nerated this result transmit nithin reference range : <=65. The reference range was not used to interpr et this result as judith l/abnormal. [facility]2019-10-28 17:18:00 Test Item Value Reference Range Interpretation Comments AST (test code = AST) 16 See_Comment [Auto mated message] The system which ge nerated this result transmit nithin reference range : <=37. The reference range was not used to interpr et this result as judith l/abnormal. [facility]2019-10-28 17:18:00 Test Item Value Reference Range Interpretation Comments Alk Phos (test code = Alk Phos) 238 39-136 [facility]2019-10-28 17:18:00 Test Item Value Reference Range Interpretation Comments Bili Total (test code = Bili Total) 0.5 0.2-1.3 [facility]2019-10-28 17:18:00 Test Item Value Reference Range Interpretation Comments AGAP (test code = AGAP) 10.8 10.0-20.0 [facility]2019-10-28 17:18:00 Test Item Value Reference Range Interpretation Comments B/C Ratio (test code = B/C Ratio) 18 1 6-25 [facility]2019-10-28 17:18:00 Test Item Value Reference Range Interpretation Comments Globulin (test code = Globulin) 4.2 2.7-4.2 [facility]2019-10-28 17:18:00 Test Item Value Reference Range Interpretation Comments A/G Ratio (test code = A/G Ratio) 0.6 1 0.7-1.6 [facility]2019-10-28 17:18:00 Test Item Value Reference Range Interpretation Comments eGFR (test code = eGFR) 130 [facility]DpeolihAKFKIRDFTN5727-54-71 17:18:00 Test Item Value Reference Range Interpretation Comments WBC (test code = WBC) 7.2 3.7-10.4 [facility] CenterLkjkzyrUFABJSLPOI5635-87-48 17:18:00 Test Item Value Reference Range Interpretation Comments RBC (test code = RBC) 3.99 4.20-5.40 [facility] CenterRoqhsdtXMSUZMKAWQ6290-73-08 17:18:00 Test Item Value Reference Range Interpretation Comments Hgb (test code = Hgb) 11.3 12.0-16.0 [facility] CenterAscpgaaOLNSNYYBCN6196-74-55 17:18:00 Test Item Value Reference Range Interpretation Comments Hct (test code = Hct) 33.5 36.0-48.0 [facility] CenterLgzbytuGRISAIXSNV6375-17-25 17:18:00 Test Item Value Reference Range Interpretation Comments MCV (test code = MCV) 83.9 80.0-98.0 [facility] CenterDajmpguPYKZZUWCAT0752-24-09 17:18:00 Test Item Value Reference Range Interpretation Comments MCH (test code = MCH) 28.3 pg 27.0-31.0 [facility] CenterLsuwfwvTPGNMPZUMC4153-16-16 17:18:00 Test Item Value Reference Range Interpretation Comments MCHC (test code = MCHC) 33.8 32.0-36.0 [place] [id number] 17:18:00 Test Item Value Reference Range Interpretation Comments RDW (test code = RDW) 12.9 11.5-14.5 [facility] CenterQfayajyNTVBRBZIFG1082-62-20 17:18:00 Test Item Value Reference Range Interpretation Comments Platelet (test code = Platelet) 197 133-450 [facility] CenterVqxuuflMQHHPQTEEK4618-04-04 17:18:00 Test Item Value Reference Range Interpretation Comments MPV (test code = MPV) 8.9 7.4-10.4 [facility] CenterWjvwbqgVDQKRAZSME8050-40-43 17:18:00 Test Item Value Reference Range Interpretation Comments Segs (test code = Segs) 70.6 45.0-75.0 [facility] CenterWnwmvyfDENHIWPELS8010-57-21 17:18:00 Test Item Value Reference Range Interpretation Comments Lymphocytes (test code = Lymphocytes) 22.4 20.0-40.0 [facility] CenterWhfnrgyFDDMRIRNQT0362-64-92 17:18:00 Test Item Value Reference Range Interpretation Comments Monocytes (test code = Monocytes) 5.8 2.0-12.0 [facility] CenterJqimnlwTPYCACUYZP6366-42-51 17:18:00 Test Item Value Reference Range Interpretation Comments Eosinophils (test code = 0.9 See_Comment [A utomated message] The Eosinophils) system which ge nerated this result tra nsmitted reference range : <=4.0. The reference r mukesh was not used to int erpret this result as normal/abnormal . [facility] CenterTbofvkcEYESHDDNCZ8436-53-45 17:18:00 Test Item Value Reference Range Interpretation Comments Basophils (test code = 0.3 See_Comment [Aut omated message] The Basophils) system which ge nerated this result tra nsmitted reference range : <=1.0. The reference r mukesh was not used to int erpret this result as normal/abnormal . [facility] CenterAvudvuyDWWGBXCDQE6411-68-22 17:18:00 Test Item Value Reference Range Interpretation Comments Neutrophils # (test code = Neutrophils 5.1 1.5-8.1 #) [facility] CenterIjmglevASMSMBNIYJ0913-36-86 17:18:00 Test Item Value Reference Range Interpretation Comments Lymphocytes # (test code = Lymphocytes 1.6 1.0-5.5 #) [facility] CenterJsyylipZTJAPKPGQO5714-48-99 17:18:00 Test Item Value Reference Range Interpretation Comments Monocytes # (test code 0.4 See_Comment [Aut omated message] The = Monocytes #) system which generated this result tra nsmitted reference range : <=0.8. The reference r mukesh was not used to int erpret this result as normal/abnormal . [facility]MkbmxrrDBDEBRFCQP3045-67-43 17:18:00 Test Item Value Reference Range Interpretation Comments Eosinophils # (test code 0.1 See_Comment [A utomated message] The = Eosinophils #) system whic h generated this result tra nsmitted reference range : <=0.5. The reference r mukesh was not used to int erpret this result as normal/abnormal . [facility]GkudpxxUSXTTOMITS3448-51-96 17:18:00 Test Item Value Reference Range Interpretation Comments Treponemal Ab (test code Non-Reactive = Treponemal Ab) *NA*(12/24/18 12:18 PM) [facility] HospitalZopsdleJCGVNYTMSS2419-65-59 17:18:00 Test Item Value Reference Range Interpretation Comments Hep Bs Ag (test code Negative *NA*(12/24/18 = Hep Bs Ag) 12:18 PM) [facility] HospitalTgbpbbuAHAPOZTKCF7509-92-57 17:18:00 Test Item Value Reference Range Interpretation Comments HIV. (test code = Negative *NA*(12/24/18 HIV.) 12:18 PM) [facility]2019-10-28 17:18:00 Test Item Value Reference Range Interpretation Comments U Creatinine (test code = U Creatinine) 80.90 [facility]2019-10-28 17:18:00 Test Item Value Reference Range Interpretation Comments U Protein (test code = U Protein) 14.3 [facility]2019-10-28 17:18:00 Test Item Value Reference Range Interpretation Comments U Prot/Creat (test code = U 0.18 1 Prot/Creat) [facility] AND [id number] 09:26:00 Test Item Value Reference Range Interpretation Comments UA Nitrite (test code Negative (08/17/18 4:26 = UA Nitrite) AM) [facility] AND [id number] 09:26:00 Test Item Value Reference Range Interpretation Comments UA Blood (test code = Negative (08/17/18 4:26 UA Blood) AM) [facility] AND [id number] 09:26:00 Test Item Value Reference Range Interpretation Comments UA Bili (test code = Negative *NA*(08/17/18 UA Bili) 4:26 AM) [facility] AND [id number] 09:26:00 Test Item Value Reference Range Interpretation Comments UA Ketones (test code = UA Negative mg/dL Ketones) [facility] AND [id number] 09:26:00 Test Item Value Reference Range Interpretation Comments UA Glucose (test code = UA Negative mg/dL Glucose) [facility] AND [id number] 09:26:00 Test Item Value Reference Range Interpretation Comments UA WBC (test code = 1 See_Comment [Automa nithin message] The UA WBC) system which ge nerated this result transmit nithin reference range : <=5. The reference range was not used to interpr et this result as judith l/abnormal. [facility] AND [id number] 09:26:00 Test Item Value Reference Range Interpretation Comments UA Leuk Est (test Negative (08/17/18 4:26 code = UA Leuk Est) AM) [facility] AND [id number] 09:26:00 Test Item Value Reference Range Interpretation Comments UA Sq Epi (test code = UA Sq Moderate /LPF Epi) [facility] AND [id number] 09:26:00 Test Item Value Reference Range Interpretation Comments UA Mucus (test code = UA Mucus) Few /LPF [facility] AND [id number] 09:26:00 Test Item Value Reference Range Interpretation Comments UA Bacteria (test code = UA Occasional /HPF Bacteria) [facility] AND [id number] 09:26:00 Test Item Value Reference Range Interpretation Comments UA Urobilinogen (test code = UA <=1.0 mg/dL 0.1-1.0 Urobilinogen) [facility] AND [id number] 09:26:00 Test Item Value Reference Range Interpretation Comments UA RBC (test code = no gt See_Comment [Automa nithin message] The UA RBC) system which ge nerated this result transmit nithin reference range : <=2. The reference range was not used to interpr et this result as judith l/abnormal. [facility] AND [id number] 09:26:00 Test Item Value Reference Range Interpretation Comments UA Spec Grav (test code = UA Spec 1.014 1 Grav) [facility] AND [id number] 09:26:00 Test Item Value Reference Range Interpretation Comments UA Protein (test code = UA Negative mg/dL Protein) [facility] AND [id number] 09:26:00 Test Item Value Reference Range Interpretation Comments UA pH (test code = UA pH) 7.0 1 5.0-8.0 [facility] AND [id number] 09:26:00 Test Item Value Reference Range Interpretation Comments UA Color (test code = Yellow *NA*(08/17/18 UA Color) 4:26 AM) [facility] AND [id number] 09:26:00 Test Item Value Reference Range Interpretation Comments UA Turbidity (test code Slight *ABN*(08/17/18 = UA Turbidity) 4:26 AM) [facility] [id number] 08:01:00 Test Item Value Reference Range Interpretation Comments Lipase Lvl (test code = Lipase Lvl) 207 73-393 [facility] CenterUzsibpvFUKTNXJVIUOC7561-76-09 08:01:00 Test Item Value Reference Range Interpretation Comments CO2 (test code = CO2) 26 24-32 [facility] CenterCpwzkakEUIMLQZESKCC7385-15-42 08:01:00 Test Item Value Reference Range Interpretation Comments B/C Ratio (test code = B/C Ratio) 13 1 6-25 [facility] CenterBbtprypUEBTKFBVBOID0532-22-98 08:01:00 Test Item Value Reference Range Interpretation Comments AGAP (test code = AGAP) 12.2 10.0-20.0 [facility] CenterJedpeunVIIAAYQYQZWH9549-31-39 08:01:00 Test Item Value Reference Range Interpretation Comments Calcium Lvl (test code = Calcium Lvl) 8.8 8.5-10.5 [facility] CenterBlgpupfXEYDMNMEBBSZ1181-34-09 08:01:00 Test Item Value Reference Range Interpretation Comments Chloride Lvl (test code = Chloride Lvl) 104 95-109 [facility] CenterGwawesfCBFNTWIVABDD4459-78-39 08:01:00 Test Item Value Reference Range Interpretation Comments A/G Ratio (test code = A/G Ratio) 0.7 1 0.7-1.6 [facility] CenterPuejkhtPDOJMEVQJCDW4230-85-74 08:01:00 Test Item Value Reference Range Interpretation Comments Total Protein (test code = Total 7.4 6.4-8.4 Protein) [facility] CenterDiztksjFDQXANCJENVB8208-67-42 08:01:00 Test Item Value Reference Range Interpretation Comments ALT (test code = ALT) 19 See_Comment [Auto mated message] The system which ge nerated this result transmit nithin reference range : <=65. The reference range was not used to interpr et this result as judith l/abnormal. [facility] CenterTerciknXDSGKUKYHIMR7718-27-61 08:01:00 Test Item Value Reference Range Interpretation Comments Albumin Lvl (test code = Albumin Lvl) 3.0 3.5-5.0 [facility] CenterAhiiawyOSCJDANOIXLR4071-81-85 08:01:00 Test Item Value Reference Range Interpretation Comments AST (test code = AST) 11 See_Comment [Auto mated message] The system which ge nerated this result transmit nithin reference range : <=37. The reference range was not used to interpr et this result as judith l/abnormal. [facility] CenterQmocvtnLMVVYDYCCLFW7555-46-08 08:01:00 Test Item Value Reference Range Interpretation Comments Globulin (test code = Globulin) 4.4 2.7-4.2 [facility] CenterBfwycewQQQHEIQVXDFR6174-34-76 08:01:00 Test Item Value Reference Range Interpretation Comments Alk Phos (test code = Alk Phos) 74 39-136 [facility] CenterAbmoassUFTTFLOJBMEM6982-37-96 08:01:00 Test Item Value Reference Range Interpretation Comments Bili Total (test code = Bili Total) 0.4 0.2-1.3 [facility] CenterQzssheyHVBSLLAFIRPL7495-64-45 08:01:00 Test Item Value Reference Range Interpretation Comments Sodium Lvl (test code = Sodium Lvl) 138 135-145 [facility] CenterUwufqcpPLCBHEWYIGWZ3826-19-52 08:01:00 Test Item Value Reference Range Interpretation Comments Glucose Lvl (test code = Glucose Lvl) 106 70-99 [facility] CenterZzipfexSLVODLVXEQFK0052-77-68 08:01:00 Test Item Value Reference Range Interpretation Comments Potassium Lvl (test code = Potassium 4.2 3.5-5.1 Lvl) [facility] CenterCmxhcemVBPJHOLBFISP0242-98-97 08:01:00 Test Item Value Reference Range Interpretation Comments BUN (test code = BUN) 7 7-22 [facility] CenterTkczbkyDUOENEBCDTYI5624-83-82 08:01:00 Test Item Value Reference Range Interpretation Comments Creatinine Lvl (test code = Creatinine 0.54 0.50-1.40 Lvl) [facility] CenterRqfckzjYCJQNZCYJYPH9397-74-66 08:01:00 Test Item Value Reference Range Interpretation Comments eGFR (test code = eGFR) 133 [facility] CenterKxhpuavBBRVEZSCCR9591-36-65 08:01:00 Test Item Value Reference Range Interpretation Comments MPV (test code = MPV) 7.7 7.4-10.4 [facility] CenterShiqjwvNPBOIHKOJF4893-05-29 08:01:00 Test Item Value Reference Range Interpretation Comments RBC (test code = RBC) 4.03 4.20-5.40 [facility] CenterSafqjyvXRVNSCQIAN8264-75-01 08:01:00 Test Item Value Reference Range Interpretation Comments WBC (test code = WBC) 10.3 3.7-10.4 [facility] CenterKsobgrkNWFLYHDUCE4603-05-35 08:01:00 Test Item Value Reference Range Interpretation Comments MCHC (test code = MCHC) 33.9 32.0-36.0 [facility] CenterJrudxipDXZGDBJGKG2587-24-34 08:01:00 Test Item Value Reference Range Interpretation Comments MCH (test code = MCH) 30.0 pg 27.0-31.0 [facility] CenterTfqjungDBUXCNHLNM8757-24-12 08:01:00 Test Item Value Reference Range Interpretation Comments MCV (test code = MCV) 88.5 80.0-98.0 [facility] CenterNcgegwbXIDACWDXHV7966-57-12 08:01:00 Test Item Value Reference Range Interpretation Comments Hct (test code = Hct) 35.6 36.0-48.0 [facility] CenterMrcuqdjZILSAHQOAR6276-23-49 08:01:00 Test Item Value Reference Range Interpretation Comments Hgb (test code = Hgb) 12.1 12.0-16.0 [facility] CenterSvseznnEVDDBKVZBC4731-80-77 08:01:00 Test Item Value Reference Range Interpretation Comments Platelet (test code = Platelet) 233 133-450 [facility] CenterCntewkmTBMJUGQIRS9876-92-73 08:01:00 Test Item Value Reference Range Interpretation Comments RDW (test code = RDW) 13.4 11.5-14.5 [facility] CenterJopzchzTZKFPEGHUF6391-17-05 08:01:00 Test Item Value Reference Range Interpretation Comments Segs (test code = Segs) 81.8 45.0-75.0 [facility] CenterCdzkwhyCJTICRNBXR6770-83-19 08:01:00 Test Item Value Reference Range Interpretation Comments Neutrophils # (test code = Neutrophils 8.4 1.5-8.1 #) [facility] CenterLshirdrTYYPNDSRKD4798-55-88 08:01:00 Test Item Value Reference Range Interpretation Comments Basophils (test code = 0.2 See_Comment [Aut omated message] The Basophils) system which ge nerated this result tra nsmitted reference range : <=1.0. The reference r mukesh was not used to int erpret this result as normal/abnormal . [facility] CenterVpjanujAUUNZDAFPJ5754-50-95 08:01:00 Test Item Value Reference Range Interpretation Comments Eosinophils (test code = 0.4 See_Comment [A utomated message] The Eosinophils) system which ge nerated this result tra nsmitted reference range : <=4.0. The reference r mukesh was not used to int erpret this result as normal/abnormal . [facility] CenterDnqccolHOSFQHGFRZ9474-94-52 08:01:00 Test Item Value Reference Range Interpretation Comments Monocytes (test code = Monocytes) 4.5 2.0-12.0 [facility] CenterDmuvxykWMTUDTOONA4905-04-04 08:01:00 Test Item Value Reference Range Interpretation Comments Lymphocytes (test code = Lymphocytes) 13.1 20.0-40.0 [facility] CenterXmqfzzdPYBLLIVHOF2417-12-56 08:01:00 Test Item Value Reference Range Interpretation Comments Lymphocytes # (test code = Lymphocytes 1.3 1.0-5.5 #) [facility] CenterSzsgowiRHXVKHPZOZ4071-46-80 08:01:00 Test Item Value Reference Range Interpretation Comments Monocytes # (test code 0.5 See_Comment [Aut omated message] The = Monocytes #) system which generated this result tra nsmitted reference range : <=0.8. The reference r mukesh was not used to int erpret this result as normal/abnormal . [facility]
[2022-06-27 23:24] LABS: Absolute Lymphocytes (CBC) 2.1 K/uL (0.7-4.9); Hematocrit 40.2 % (36.0-45.0); Lymphocytes % 19.5 % (15.3-44.8); MPV 7.2 fL (7.6-11.3); RBC Red Blood Cell Count 4.67 M/uL (3.86-4.86)
[2022-06-27] MEDS ORDERED: KETOROLAC 30 MG/ML INJ ONE (23:43)
[2022-06-27] MEDS ORDERED: LORAZEPAM 1 MG TABLET ONE (23:43)
[2022-06-27 23:48] LABS: ALT/SGPT 22 U/L (13-56); AST/SGOT 12 U/L (15-37); Albumin 4.2 g/dL (3.4-5.0); Alkaline Phosphatase 89 U/L (45-117); BUN Blood Urea Nitrogen 6 mg/dL (7-18); Bicarbonate 24 mEq/L (21-32); Bilirubin Total 0.6 mg/dL (0.2-1.0); Glomerular Filtration Rate 117 ml/min (=/>90); Glucose Level 126 mg/dL (74-106); Potassium 3.2 mEq/L (3.5-5.1); Protein, Total 8.4 g/dL (6.4-8.2); Sodium Level 137 mEq/L (136-145)
[2022-06-27 23:50] LABS: Troponin High Sensitivity < 3.0 pg/mL (<58.9)
--- NOTE | 2022-06-28 00:10 | ER ---
Nurse's Notes [facility] Name: Jossie Sparks Age: 26 yrs Sex: Female : 1995 Arrival Date: 06/27/2022 Time: 22:33 Bed 20 Private MD: Diagnosis: Chest pain, unspecified Presentation: 06/27 22:43 Chief complaint: Patient states: "I've been having chest pain and pain to my right arm mb9 and my right cheek feels weird. I also have a headache and I've just been feeling weird all day today.". Coronavirus screen: Vaccine status: Patient reports being unvaccinated. Client denies travel out of the [place] in the last 14 days. At this time, the client does not indicate any symptoms associated with coronavirus-19. Ebola Screen: Patient negative for fever greater than or equal to 101.5 degrees Fahrenheit, and additional compatible Ebola Virus Disease symptoms Patient denies exposure to infectious person. Patient denies travel to an Ebola-affected area in the 21 days before illness onset. No symptoms or risks identified at this time. Initial Sepsis Screen: Does the patient meet any 2 criteria? HR > 90 bpm. No. Patient's initial sepsis screen is negative. Does the patient have a suspected source of infection? No. Patient's initial sepsis screen is negative. Risk Assessment: Do you want to hurt yourself or someone else? Patient reports no desire to harm self or others. Onset of symptoms was June 27, 2022 at 07:00. 22:43 Method Of Arrival: Ambulatory mb9 22:43 Acuity: [place] 3 mb9 Triage Assessment: 22:46 General: Appears in no apparent distress. uncomfortable, Behavior is cooperative, mb9 anxious. Pain: Complains of pain in right temporal area, right occipital area and right base of the skull Pain does not radiate. Pain currently is 7 out of 10 on a pain scale. EENT: No deficits noted. No signs and/or symptoms were reported regarding the EENT system. Neuro: Level of Consciousness is awake, alert, obeys commands, Oriented to person, place, time, situation, Appropriate for age. Cardiovascular: Chest pain is described as mild, quality is sharp. Respiratory: Airway is patent Respiratory effort is even, unlabored, Respiratory pattern is regular, symmetrical. GI: No deficits noted. No signs and/or symptoms were reported involving the gastrointestinal system. : No deficits noted. No signs and/or symptoms were reported regarding the genitourinary system. Derm: No deficits noted. No signs and/or symptoms reported regarding the dermatologic system. Musculoskeletal: No deficits noted. No signs and/or symptoms reported regarding the musculoskeletal system. 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 - Social history:: Smoking status: Patient denies any tobacco usage or history of. Screenin:47 [facility] ED Fall Risk Assessment (Adult) History of falling in the last 3 months, mb9 including since admission No falls in past 3 months (0 pts) Confusion or Disorientation No (0 pts) Intoxicated or Sedated No (0 pts) Impaired Gait No (0 pts) Mobility Assist Device Used No (0 pt) Altered Elimination No (0 pt) Score/Fall Risk Level 0 - 2 = Low Risk Oriented to surroundings, Maintained a safe environment, Educated pt \\T\\ family on fall prevention, incl call for assistance when getting out of bed. Abuse screen: Denies threats or abuse. Nutritional screening: No deficits noted. Tuberculosis screening: No symptoms or risk factors identified. Assessment: 22:48 General: Appears comfortable, Behavior is calm, cooperative. Pain: Complains of pain in ha1 chest Pain does not radiate. Pain currently is 5 out of 10 on a pain scale. Quality of pain is described as pressure, Pain began suddenly. Neuro: Level of Consciousness is awake, alert, obeys commands, Oriented to person, place, time, situation. Cardiovascular: Heart tones S1 S2 present Capillary refill < 3 seconds Patient's skin is warm and dry. Cardiovascular: Reports chest pain. Respiratory: Airway is patent Respiratory effort is even, unlabored, Respiratory pattern is regular, symmetrical, Breath sounds are clear bilaterally. GI: No signs and/or symptoms were reported involving the gastrointestinal system. 23:40 Reassessment: Patient and/or family updated on plan of care and expected duration. Pain ha1 level reassessed. Patient is alert, oriented x 3, equal unlabored respirations, skin warm/dry/pink. 06/28 00:41 Reassessment: Patient and/or family updated on plan of care and expected duration. Pain ha1 level reassessed. Patient is alert, oriented x 3, equal unlabored respirations, skin warm/dry/pink. Vital Signs: 06/27 22:43 BP 120 / 89; Pulse 112; Resp 16; Temp 97.5; Pulse Ox 100% ; Weight 56.7 kg; Height 5 mb9 ft. 0 in. ; Pain 7/10; 23:20 BP 118 / 84; Pulse 91; Resp 18 S; Pulse Ox 99% on R/A; ha1 06/28 00:03 BP 114 / 80; Pulse 94; Resp 17 S; Pulse Ox 99% on R/A; ha1 06/27 22:43 Body Mass Index 24.41 (56.70 kg, 152.4 cm) mb9 06/27 22:43 Pain Scale: Adult mb9 ED Course: 06/27 22:35 Patient arrived in ED. [id number] 22:39 Gwyn Moses MD is Attending Physician. rt 22:44 Triage completed. mb9 22:46 Arm band placed on right wrist. mb9 22:46 Client placed on continuous cardiac and pulse oximetry monitoring. NIBP monitoring ha1 applied. 22:48 Patient has correct armband on for positive identification. Placed in gown. Bed in low ha1 position. Call light in reach. Side rails up X 1. 23:18 Lesa Rodas, MARCIO is Primary Nurse. ha1 23:19 TSH Sent. ha1 23:19 Troponin High Sensitivity Sent. ha1 23:19 CMP Sent. ha1 23:19 CBC with Diff Sent. ha1 23:33 Chest Single View XRAY In Process Unspecified. EDMS 06/28 00:41 No provider procedures requiring assistance completed. IV discontinued, intact, ha1 bleeding controlled, No redness/swelling at site. Pressure dressing applied. Patient maintains SpO2 saturation greater than 95% on room air. Administered Medications: 06/27 23:44 Drug: LORazepam PO 1 mg Route: PO; ha1 06/28 00:15 Follow up: Response: No adverse reaction; RASS: Alert and Calm (0) ha1 00:11 Not Given (Patient Refused): Ketorolac IM 30 mg IM once ha1 Medication: 00:42 VIS not applicable for this client. ha1 Outcome: 00:09 Discharge ordered by . rt 00:42 Discharged to home ambulatory, with family. ha1 00:42 Condition: stable 00:42 Discharge instructions given to patient, family, Instructed on discharge instructions, follow up and referral plans. Demonstrated understanding of instructions, follow-up care. 00:42 Patient left the ED. ha1 Signatures: Dispatcher [employer] EDPR Sylvia [id number] Ai Ontiveros RN RN vc1 Lesa Rodas RN RN ha1 Koki Ortiz RN RN mb9 Gwyn Moses MD MD rt
--- NOTE | 2022-06-28 00:10 | EDPHYS ---
Physician Documentation [facility] Name: Jossie Sparks Age: 26 yrs Sex: Female : 1995 Arrival Date: 06/27/2022 Time: 22:33 Bed 20 Private MD: ED Physician Gwyn Moses HPI: 06/27 23:13 This 26 yrs old Female presents to ER via Ambulatory with complaints of Chest rt Tightness, Numbness Of Arm, Numbness Of Face, Anxiety. 23:13 Patient presents to the ED with a chest tightness, headache, right shoulder pain for rt over 24 hours. She has attributed this to anxiety, denies trauma, other acute complaints, aggravating or alleviating factors. Patient states that she feels off and wishes to be checked out. Denies SI. Denies other acute complaints at this time. Symptoms are moderate in severity, no other aggravating alleviating factors.. 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 - Social history:: Smoking status: Patient denies any tobacco usage or history of. ROS: 23:14 Constitutional: Negative for fever, chills, and weight loss, Respiratory: Negative for rt shortness of breath, cough, wheezing, and pleuritic chest pain, Abdomen/GI: Negative for abdominal pain, nausea, vomiting, diarrhea, and constipation, Skin: Negative for injury, rash, and discoloration. 23:14 Cardiovascular: Positive for chest pain, Negative for edema. 23:14 Neuro: Positive for headache, Negative for altered mental status. 23:14 Psych: Positive for anxiety, Negative for depression. Exam: 23:14 Constitutional: This is a well developed, well nourished patient who is awake, alert, rt and in no acute distress. Head/Face: Normocephalic, atraumatic. Chest/axilla: Normal chest wall appearance and motion. Nontender with no deformity. No lesions are appreciated. Cardiovascular: Regular rate and rhythm with a normal S1 and S2. No gallops, murmurs, or rubs. Normal PMI, no JVD. No pulse deficits. Respiratory: Lungs have equal breath sounds bilaterally, clear to auscultation and percussion. No rales, rhonchi or wheezes noted. No increased work of breathing, no retractions or nasal flaring. Abdomen/GI: Soft, non-tender, with normal bowel sounds. No distension or tympany. No guarding or rebound. No evidence of tenderness throughout. Skin: Warm, dry with normal turgor. Normal color with no rashes, no lesions, and no evidence of cellulitis. MS/ Extremity: Pulses equal, no cyanosis. Neurovascular intact. Full, normal range of motion. Neuro: Awake and alert, GCS 15, oriented to person, place, time, and situation. Cranial nerves II-XII grossly intact. Motor strength 5/5 in all extremities. Sensory grossly intact. Cerebellar exam normal. Normal gait. Psych: Awake, alert, with orientation to person, place and time. Behavior, mood, and affect are within normal limits. 23:14 ECG was reviewed by the Attending Physician. Vital Signs: 22:43 BP 120 / 89; Pulse 112; Resp 16; Temp 97.5; Pulse Ox 100% ; Weight 56.7 kg; Height 5 mb9 ft. 0 in. ; Pain 7/10; 23:20 BP 118 / 84; Pulse 91; Resp 18 S; Pulse Ox 99% on R/A; ha1 06/28 00:03 BP 114 / 80; Pulse 94; Resp 17 S; Pulse Ox 99% on R/A; 1 06/27 22:43 Body Mass Index 24.41 (56.70 kg, 152.4 cm) [facility] 06/27 22:43 Pain Scale: Adult mb9 MDM: 06/27 22:49 Patient medically screened. rt 06/28 00:10 Differential diagnosis: acute myocardial infarction, acute pericarditis, anxiety, chest rt wall pain, pneumonia, pneumothorax, pulmonary embolus. HEART Score: History: Slightly Suspicious (0), ECG: Normal (0), Age: < or = 45 years (0), Risk Factors: No Risk Factors Known (0), Troponin: < or = 1 x Normal Limit (0), Total Score = 0. Data reviewed: vital signs, nurses notes, lab test result(s), EKG, radiologic studies. I considered the following discharge prescriptions or medication management in the emergency department Medications were administered in the Emergency Department. See MAR. Independent interpretation of the following test(s) in the Emergency Department X-Ray: My interpretation is No consolidation, pneumothorax seen on my interpretation of the chest x-ray images. Test considered but Not performed: CT: PE RC negative, low suspicion for pulmonary embolism, CT scan not indicated. Counseling: I had a detailed discussion with the patient and/or guardian regarding: the historical points, exam findings, and any diagnostic results supporting the discharge/admit diagnosis, lab results, radiology results, the need for outpatient follow up. 06/27 22:51 Order name: CBC with Diff; Complete Time: 23:54 rt 06/27 22:51 Order name: CMP; Complete Time: 23:54 rt 06/27 22:51 Order name: Troponin High Sensitivity; Complete Time: 23:54 rt 06/27 22:51 Order name: TSH; Complete Time: 23:54 rt 06/27 22:51 Order name: Chest Single View XRAY rt 06/27 23:08 Order name: EKG; Complete Time: 23:08 rt 06/27 23:08 Order name: EKG - Nurse/Tech; Complete Time: 23:19 rt EC/01 23:14 Rate is 96 beats/min. Rhythm is regular, Normal Sinus Rhythm with No ectopy. QRS [place] rt is Normal. AR interval is normal. QRS interval is normal. QT interval is normal. No Q waves. T waves are Normal. No ST changes noted. Interpreted by me. Administered Medications: 23:44 Drug: LORazepam PO 1 mg Route: PO; ha1 06/28 00:15 Follow up: Response: No adverse reaction; RASS: Alert and Calm (0) ha1 00:11 Not Given (Patient Refused): Ketorolac IM 30 mg IM once ha1 Disposition Summary: 06/28/22 00:09 Discharge Ordered Location: Home rt Problem: new rt Symptoms: have improved rt Condition: Stable rt Diagnosis - Chest pain, unspecified rt Followup: rt - With: Private Physician - When: 2 - 3 days - Reason: Discharge Instructions: - Discharge Summary Sheet rt - Nonspecific Chest Pain, Adult rt Forms: - Medication Reconciliation Form rt - Thank You Letter rt - Antibiotic Education rt - Prescription Opioid Use rt Signatures: Dispatcher [employer] Lesa Abrams RN RN ha1 Koki Ortiz, RN RN mb9 Gwyn Moses MD MD rt
[2022-06-28 00:49] VITALS: TEMP 97.5
[2022-06-28 00:51] VITALS: O2SAT 99
[2022-06-28 00:53] VITALS: BP 114/80
--- NOTE | 2022-06-28 14:33 | RAD REPORT ---
EXAM DESCRIPTION: RAD - Chest Single View - 06/27/2022 11:32 pm CLINICAL HISTORY: The patient is 26 years old and is Female; CHEST PAIN TECHNIQUE: Frontal view of the chest. COMPARISON: No relevant prior studies available. FINDINGS: LUNGS: Unremarkable. No consolidation. PLEURAL SPACE: Unremarkable. No pneumothorax. HEART: Unremarkable. No cardiomegaly. MEDIASTINUM: Unremarkable. BONES/JOINTS: Unremarkable. UPPER ABDOMEN: Unremarkable as visualized. IMPRESSION: No acute cardiopulmonary process. Electronically signed by: Lizz Ortiz MD 06/28/2022 12:21 AM CDT Due to temporary technical issues with the PACS/Fluency reporting system, reports are being signed by the in house radiologists without review as a courtesy to insure prompt reporting. The interpreting radiologist is fully responsible for the content of the report.
--- NOTE | 2022-06-28 16:06 | EKG ---
Test Date: 2022-06-27 Test Time: 23:10:03 Envelope Cutter: GEGE MEASUREMENT RESULTS: Intervals: Rate: 96 SD: 142 QRSD: 78 QT: 332 QTc: 419 [place]: P: 73 SD: 142 QRS: 78 T: 84 INTERPRETIVE STATEMENTS: Normal sinus rhythm with sinus arrhythmia Normal ECG No previous ECG available for comparison Electronically Signed On 06-28-22 16:04:41 CDT by Geovanni De La Cruz
== END 2022-06-28 00:42 | disposition home or self-care (01) ==
LOC: ER 22:33
DX: R07.89 Other chest pain (principal); R51.9 Headache, unspecified; F41.9 Anxiety disorder, unspecified
CPT/HCPCS: 36415; 71045; 80053; 84443; 84484; 85025; 93005; 99284